=== PATIENT | female | born 1985 | race Caucasian/White ===

== ENCOUNTER 2017-01-11 06:02 | Emergency (ER) | payer OTHER ==
[~2017-01-11] VITALS: Ht 167.6 cm; Wt 68.0 kg
[~2017-01-11 06:02] MED LIST: 'XANAX1 MG PO; ADDERALL XR30 MG PO; AMOXIL500 MG PO; ANAPROX DS550 MG PO; AUGMENTIN 875 M1 TAB PO; CEPHALEXIN500 M1 PO; CLARITIN10 MG PO; COMBIVENT1 ARO IH; FLAGYL500 MG PO; FLEXERIL10 MG PO; HYDROCODONE BIT1 T11 PO; IBU-8800 MG PO; MEDROL DOSEPAK4 MG PO; MIDRIN (DURADR1 CAP PO; MOTRIN600 MG PO; MOTRIN800 MG PO; NORFLEX100 MG PO; ROBAXIN750 MG PO; TRAMADOL HCL50 MG PO; VIBRAMYCIN100 MG PO; VICODIN 5/500 505 MG PO; ZOFRAN4 MG PO
[2017-01-11 06:30] LABS: BILIRUBIN NEGATIVE (NEGATIVE); BLOOD NEGATIVE (NEGATIVE); CLARITY SL CLOUDY (CLEAR); COLOR YELLOW (YELLOW); GLUCOSE NEGATIVE (NEGATIVE); KETONE NEGATIVE (NEGATIVE); LEUKO ESTERASE NEGATIVE (NEGATIVE); NITRITE NEGATIVE (NEGATIVE); PH 6.5 (5.0-9.0); PROTEIN TRACE (NEGATIVE)
[2017-01-11 06:45] LABS: BACTERIA 1+; MUCOUS 2+; URINE REFLEX COMMENT NO (NO); WBC 0-2 wbc/hpf (0-5)
[2017-01-11 06:48] LABS: URINE AMPHETAMINES < 1000 (1000ng/ml); URINE BARBITURATES < 200 (200ng/ml); URINE COCAINE < 300 (300ng/ml)
[2017-01-11 06:50] LABS: BASO # 0.1 10*3/uL (0.0-0.1); BASO % 0.6 % (0.0-1.0); EOS # 0.2 10*3/uL (0.0-0.4); EOS % 1.1 % (1.0-4.0); HEMATOCRIT 46.2 % (37.0-47.0); HEMOGLOBIN 16.2 g/dl (12.0-16.0); LYMPH # 3.5 10*3/uL (1.3-4.4); LYMPH % 24.7 % (27.0-41.0); MEAN CELL VOLUME 96.7 fl (81.0-99.0); MEAN CORPUSCULAR HGB 33.9 pg (27.0-31.0); MEAN CORPUSCULAR HGB CONC 35.1 g/dl (33.0-37.0); MEAN PLATELET VOLUME 10.4 fl (9.6-12.3); MONO # 0.7 10*3/uL (0.1-1.0); MONO % 4.6 % (3.0-9.0); NEUT # 9.6 10*3/uL (2.3-7.9); NEUT % 68.7 % (47.0-73.0); PLATELET COUNT AUTOMATED 312 10*3/uL (130-400); RED BLOOD COUNT 4.78 10*6/uL (4.10-5.10); RED CELL DISTRI WIDTH 11.9 % (0-14.5)
[2017-01-11 07:04] LABS: BUN 8 mg/dl (7-24); CARBON DIOXIDE 27 mmol/L (21-32); CHLORIDE 110 mmol/L (98-107); EST GLOM FILT AFRICAN AMERICAN > 60 ml/min; GLUCOSE 110 mg/dL (65-99); MAGNESIUM 2.1 mg/dL (1.5-2.1); POTASSIUM 4.1 mmol/L (3.5-5.1); SODIUM 143 mmol/L (136-145)
[2017-01-11 07:05] LABS: C-REACTIVE PROTEIN 0.37 MG/DL (0-0.3)
[2017-01-11] MEDS ORDERED: Motrin,Rufen800 MG PO (08:09)
[2017-01-11] MEDS ORDERED: ZOFRAN ODT4 MG SL (08:09)
== END 2017-01-11 08:43 | disposition home or self-care (01) ==
LOC: ED 06:02
PROVIDERS: Emergency Medicine Emergency Medical Services
DX: G43.909 Migraine, unspecified, not intractable, without status migrainosus (principal)

== ENCOUNTER 2017-02-22 22:28 | Emergency (ER) | payer OTHER ==
[~2017-02-22] VITALS: Ht 167.6 cm; Wt 68.0 kg
[~2017-02-22 22:28] MED LIST changes: +Motrin,Rufen800 MG PO; +ZOFRAN ODT4 MG SL
[2017-02-22] MEDS ORDERED: ADDERALL XR 3030 MG PO (22:35)
[2017-02-23] MEDS ORDERED: CYCLOBENZAPRINE5 M3 PO (00:36)
[2017-02-23] MEDS ORDERED: Motrin,Rufen800 MG PO (00:36)
[2017-02-23] MEDS ORDERED: ULTRAM50 MG PO (00:36)
== END 2017-02-23 00:58 | disposition home or self-care (01) ==
LOC: ED 22:28
DX: M54.16 Radiculopathy, lumbar region (principal); Z79.899 Other long term (current) drug therapy

== ENCOUNTER → 2017-10-25 | Outpatient (CLI) | payer OTHER ==
[~2017-10-25] MED LIST changes: +ADDERALL XR 3030 MG PO; +CYCLOBENZAPRINE5 M3 PO; +FLONASE ALLERG9.9 ML NAS; +NEURONTIN300 MG PO; +ULTRAM50 MG PO
[2017-10-25 09:11] LABS: BASO % 0.3 % (0.0-1.0); EOS # 0.1 10*3/uL (0.0-0.4); EOS % 0.8 % (1.0-4.0); HEMATOCRIT 40.5 % (37.0-47.0); LYMPH # 2.8 10*3/uL (1.3-4.4); LYMPH % 22.5 % (27.0-41.0); MEAN CORPUSCULAR HGB 34.6 pg (27.0-31.0); MEAN CORPUSCULAR HGB CONC 34.6 g/dl (33.0-37.0); MEAN PLATELET VOLUME 10.5 fl (9.6-12.3); MONO # 0.8 10*3/uL (0.1-1.0); MONO % 6.6 % (3.0-9.0); NEUT # 8.6 10*3/uL (2.3-7.9); NEUT % 69.4 % (47.0-73.0); PLATELET COUNT AUTOMATED 226 10*3/uL (130-400); RED BLOOD COUNT 4.05 10*6/uL (4.10-5.10); RED CELL DISTRI WIDTH 12.3 % (0-14.5); WHITE BLOOD COUNT 12.4 10*3/uL (4.8-10.8)
[2017-10-25 09:45] LABS: ALBUMIN 3.8 gm/dl (3.1-4.5); ALKALINE PHOSPHATASE 68 U/L (45-117); BUN 11 mg/dl (7-24); CHLORIDE 105 mmol/L (98-107); POTASSIUM 3.8 mmol/L (3.5-5.1); SGOT/AST 16 IU/L (3-35); SGPT/ALT 25 U/L (12-78); SODIUM 139 mmol/L (136-145); TOTAL PROTEIN 7.4 gm/dL (6.4-8.2)
[2017-10-25 11:04] LABS: VITAMIN D, 25-HYDROXY 10.3 ng/mL (30-100)
== END | disposition home or self-care (01) ==
LOC: LAB 08:53
PROVIDERS: Physician Assistant
DX: Z51.81 Encounter for therapeutic drug level monitoring (principal); Z79.899 Other long term (current) drug therapy

== ENCOUNTER 2017-11-11 09:19 | Emergency (ER) | payer OTHER ==
[~2017-11-11] VITALS: Ht 167.6 cm; Wt 77.1 kg
[~2017-11-11 09:19] MED LIST changes: -FLONASE ALLERG9.9 ML NAS; -NEURONTIN300 MG PO
[2017-11-11] MEDS ORDERED: NEURONTIN300 MG PO (09:28)
[2017-11-11 09:31] LABS: BASO # 0.1 10*3/uL (0.0-0.1); BASO % 0.5 % (0.0-1.0); EOS # 0.1 10*3/uL (0.0-0.4); EOS % 1.5 % (1.0-4.0); HEMATOCRIT 45.6 % (37.0-47.0); HEMOGLOBIN 15.9 g/dl (12.0-16.0); LYMPH # 2.4 10*3/uL (1.3-4.4); LYMPH % 25.8 % (27.0-41.0); MEAN CELL VOLUME 98.3 fl (81.0-99.0); MEAN CORPUSCULAR HGB 34.3 pg (27.0-31.0); MEAN CORPUSCULAR HGB CONC 34.9 g/dl (33.0-37.0); MEAN PLATELET VOLUME 10.5 fl (9.6-12.3); MONO # 0.5 10*3/uL (0.1-1.0); MONO % 5.4 % (3.0-9.0); NEUT # 6.3 10*3/uL (2.3-7.9); NEUT % 66.5 % (47.0-73.0); PLATELET COUNT AUTOMATED 241 10*3/uL (130-400); RED BLOOD COUNT 4.64 10*6/uL (4.10-5.10); WHITE BLOOD COUNT 9.4 10*3/uL (4.8-10.8)
[2017-11-11] MEDS ORDERED: FLONASE ALLERG9.9 ML NAS (09:43)
[2017-11-11] MEDS ORDERED: CLARITIN10 MG PO (09:43)
[2017-11-11 09:49] LABS: ALBUMIN 4.2 gm/dl (3.1-4.5); ALKALINE PHOSPHATASE 59 U/L (45-117); BUN 10 mg/dl (7-24); CHLORIDE 106 mmol/L (98-107); POTASSIUM 3.6 mmol/L (3.5-5.1); SGOT/AST 19 IU/L (3-35); SGPT/ALT 24 U/L (12-78); SODIUM 138 mmol/L (136-145)
[2017-11-11 09:51] LABS: TROPONIN I < 0.015 ng/ml (<0.045)
== END 2017-11-11 11:07 | disposition home or self-care (01) ==
LOC: ED 09:19
PROVIDERS: Nurse Practitioner Family
DX: R42 Dizziness and giddiness (principal); R19.7 Diarrhea, unspecified; Z79.899 Other long term (current) drug therapy

== ENCOUNTER 2018-05-06 15:06 | Emergency (ER) | payer OTHER ==
[~2018-05-06] VITALS: Wt 59.0 kg
[~2018-05-06 15:06] MED LIST changes: +FLONASE ALLERG9.9 ML NAS; +NEURONTIN300 MG PO
[2018-05-06] MEDS ORDERED: TRAMADOL HCL50 MG PO (17:40)
[2018-05-06] MEDS ORDERED: MEDROL DOSEPAK4 MG PO (17:40)
[2018-05-06] MEDS ORDERED: CYCLOBENZAPRINE10 MG PO (17:40)
== END 2018-05-06 17:46 | disposition home or self-care (01) ==
LOC: ED 15:06
DX: M54.5 Low back pain (principal); M62.838 Other muscle spasm; G43.909 Migraine, unspecified, not intractable, without status migrainosus; F17.200 Nicotine dependence, unspecified, uncomplicated; Z88.1 Allergy status to other antibiotic agents; Z79.899 Other long term (current) drug therapy

== ENCOUNTER → 2018-07-17 | Outpatient (CLI) | payer OTHER ==
[~2018-07-17] MED LIST changes: +CYCLOBENZAPRINE10 MG PO
--- NOTE | ~2018-07-17 | EKG ---
[place], [place] ELECTROCARDIOGRAM REPORT NAME: MEI GAINES UNIT #: [id number] ROOM: DOCTOR: DENNYS DRAFT REPORT BIRTHDATE: [birth year] [facility] Test Date: 2018-07-17 Test Time: 11:49:03 Pat Name: MEI GAINES Department: Room: Gender: F Tapeman: : 1985 Requested By: JEFFREY NELSON Order Number: [id number] Reading MD: Ko Garcia MD Measurements Intervals [place] Rate: 100 P: 83 FL: 156 QRS: 84 QRSD: 77 T: 54 QT: 342 QTc: 442 Interpretive Statements Sinus tachycardia Borderline T abnormalities, anterior leads No previous ECG available for comparison Electronically Signed On 07-18-2018 4:06:53 PST by Ko Garcia MD CM:EKGRPT:ELECTROCARDIOGRAM REPORT [id number] JEFFREY NOYOLA DRAFT REPORT JEFFREY NELSON
== END | disposition home or self-care (01) ==
LOC: LAB 11:26 → CARD 11:26
DX: R00.0 Tachycardia, unspecified (principal); F15.10 Other stimulant abuse, uncomplicated

== ENCOUNTER 2018-08-11 18:08 | Inpatient (IN) | payer OTHER ==
[~2018-08-11] VITALS: Ht 167.6 cm; Wt 77.6 kg
--- NOTE | ~2018-08-11 | EKG ---
[place], [place] ELECTROCARDIOGRAM REPORT NAME: MEI GAINES UNIT #: [id number] ROOM: 531 DOCTOR: DENNYS DRAFT REPORT BIRTHDATE: [birth year] [facility] Test Date: 2018-08-11 Test Time: 18:28:03 Pat Name: MEI GAINES Department: 5E Room: 531 Gender: F Cosmetic Sales Assistant: Teetee Mosley : 1985 Requested By: FLORES BYRD Order Number: [id number] Reading MD: Ko Garcia MD Measurements Intervals [place] Rate: 94 P: 50 MN: 163 QRS: 57 QRSD: 73 T: 29 QT: 339 QTc: 424 Interpretive Statements Sinus rhythm Compared to ECG 07/17/2018 11:49:03 Sinus tachycardia no longer present T-wave abnormality no longer present Electronically Signed On 08-14-2018 12:31:34 PST by Ko Garcia MD CM:EKGRPT:ELECTROCARDIOGRAM REPORT [id number] FLORES BYRD EPIPHANY DRAFT REPORT FLORES BYRD
--- NOTE | ~2018-08-11 | CON ---
[place], [place] REPORT OF CONSULTATION NAME: MEI GAINES [facility] #: [id number] UNIT #: [id number] ROOM: 531 DOCTOR: JOEY GERBER MD BIRTHDATE: [birth year] DOS: 08/12/2018 REASON FOR CONSULTATION: Chest pain. CLINICAL HISTORY: The patient, 32-year-old patient, with no prior cardiovascular history, who presented to the Emergency Room for chest pain, shortness of breath. She is complaining of intermittent left-sided chest pain. She describes it as a tightness and a cramping pain, which radiates down her left arm and left leg, which has been going on for the past year. She has some shortness of breath with exertion. Her chest pain is intermittent, more at rest, no associated symptoms and pain, did relieve on its own. She denies any PND or orthopnea. She is fairly active at home. She has multiple other noncardiac symptoms including neck pain, back pain and intermittent fatigue and lack of energy, insomnia, nausea. She is really concerned about heart disease due to her family history of heart disease in her grandmother, grandfather, uncles, but none of her parents or other siblings have any heart disease. So, she was admitted to hospital and Cardiology consulted for further recommendations. At the time of examination, the patient is comfortable, sitting in the bed ____ family members. Denies any chest pain, shortness of breath. No palpitation, no dizziness, no orthopnea. REVIEW OF SYSTEMS: Review of the 10 system negative except as mentioned above. The patient did have some anxiety and she did follow with the psychiatrist. PAST MEDICAL HISTORY: 1. Anxiety. 2. Chronic neck pain. 3. Chronic lumbar radiculopathy. PAST SURGICAL HISTORY: Migraine headaches. SOCIAL HISTORY: The patient does smoke about half a pack a day, but does not drink alcohol, does not use illicit drugs. FAMILY HISTORY: Father and mother, no known cardiac history in the father and mother. ALLERGIES: The patient is allergic to BACTRIM. HOME MEDICATIONS: Reviewed. PAST SURGICAL HISTORY: No significant surgical history. PHYSICAL EXAMINATION: VITAL SIGNS: Blood pressure 112/60, pulse 61, respiratory rate was 16, weight 77.6 kilos, BMI 27.6. GENERAL: Alert, comfortable, in no acute distress. HEAD AND NECK: Supple, no distended neck veins, no carotid bruit. CHEST: Symmetrical, nontender. LUNGS: Clear to auscultation bilaterally. [place], [place] REPORT OF CONSULTATION NAME: MEI GAINES [facility] #: [id number] UNIT #: [id number] ROOM: 531 DOCTOR: JOEY GREBER MD BIRTHDATE: [birth year] HEART: Regular rhythm, no S3. ABDOMEN: Nontender. Bowel sounds normal. EXTREMITIES: Showed no edema. Distal pulses palpable. SKIN: Warm and dry. No cyanosis, no clubbing. RECTAL: Deferred. GENITOURINARY: Deferred. NEUROLOGIC: The patient is alert, oriented. No focal neurologic deficit. REVIEW OF THE DIAGNOSTIC TESTS: Her labs and imaging studies reviewed. EKG, normal sinus rhythm, nonspecific ST changes. CBC, chemistry unremarkable. Cardiac troponins are negative. IMPRESSION: 1. Chest pain, atypical, myocardial infarction ruled out. 2. Tobacco smoking. 3. Chronic back and neck pain. 4. Anxiety disorder. 5. Attention deficit hyperactivity disorder. RECOMMENDATIONS: Long discussion with the patient and her family members at bedside. Due to her family history and symptoms, I would recommend a treadmill stress test, which can be done as outpatient. The patient counseled for risk factor modification, for diet, exercise, weight loss as well as to quit smoking. Noncardiac issue, she will follow with her family doctor and her psychiatrist. All questions answered regarding her chest pain. The case was discussed with Dr. Carrasco, who is her admitting physician and her treatment plan was discussed. JOEY GERBER MD CM:CONSTR:REPORT OF CONSULTATION 1804 08/13/18 1622 interface
--- NOTE | ~2018-08-11 | EKG ---
[place], [place] ELECTROCARDIOGRAM REPORT NAME: MEI GAINES UNIT #: [id number] ROOM: 531 DOCTOR: DENNYS DRAFT REPORT BIRTHDATE: [birth year] [facility] Test Date: 2018-08-11 Test Time: 21:29:44 Pat Name: MEI GAINES Department: 5E Room: 531 1 Gender: F Evaluation Analyst: Teetee Mosley : 1985 Requested By: ALIDA SR Order Number: [id number] Reading MD: Ko Garcia MD Measurements Intervals [place] Rate: 68 P: 32 [place]: 177 QRS: 48 QRSD: 78 T: 25 QT: 382 QTc: 407 Interpretive Statements Sinus rhythm Borderline T abnormalities, anterior leads Compared to ECG 07/17/2018 11:49:03 Sinus tachycardia no longer present T-wave abnormality still present Electronically Signed On 08-14-2018 12:32:25 PST by Ko Garcia MD CM:EKGRPT:ELECTROCARDIOGRAM REPORT [id number] 1232 ALIDA ENGLISH DRAFT REPORT ALIDA SR DO
--- NOTE | ~2018-08-11 | EKG ---
[place], [place] ELECTROCARDIOGRAM REPORT NAME: MEI GAINES UNIT #: [id number] ROOM: 531 DOCTOR: DENNYS DRAFT REPORT BIRTHDATE: [birth year] [facility] Test Date: 2018-08-12 Test Time: 00:09:18 Pat Name: MEI GAINES Department: Room: 531 1 Gender: F Manager Style: Isidro Cao : 1985 Requested By: ALIDA SR Order Number: [id number] Reading MD: Ko Garcia MD Measurements Intervals [place] Rate: 73 P: 47 [place]: 160 QRS: 58 QRSD: 74 T: 30 QT: 397 QTc: 438 Interpretive Statements Sinus rhythm Borderline T abnormalities, anterior leads Compared to ECG 07/17/2018 11:49:03 Sinus tachycardia no longer present T-wave abnormality still present Electronically Signed On 08-14-2018 12:32:53 PST by Ko Garcia MD CM:EKGRPT:ELECTROCARDIOGRAM REPORT [id number] 1232 ALIDA ENGLISH DRAFT REPORT ALIDA SR DO
[2018-08-11 18:11] VITALS: BP 104/66
[2018-08-11 18:32] LABS: BASO # 0.1 10*3/uL (0.0-0.1); BASO % 0.7 % (0.0-1.0); EOS # 0.2 10*3/uL (0.0-0.4); EOS % 2.1 % (1.0-4.0); HEMATOCRIT 39.7 % (37.0-47.0); HEMOGLOBIN 13.8 g/dl (12.0-16.0); LYMPH # 3.5 10*3/uL (1.3-4.4); LYMPH % 32.6 % (27.0-41.0); MEAN CELL VOLUME 99.7 fl (81.0-99.0); MEAN CORPUSCULAR HGB 34.7 pg (27.0-31.0); MEAN CORPUSCULAR HGB CONC 34.8 g/dl (33.0-37.0); MEAN PLATELET VOLUME 10.1 fl (9.6-12.3); MONO # 0.6 10*3/uL (0.1-1.0); MONO % 5.7 % (3.0-9.0); NEUT # 6.2 10*3/uL (2.3-7.9); NEUT % 58.4 % (47.0-73.0); PLATELET COUNT AUTOMATED 251 10*3/uL (130-400); RED BLOOD COUNT 3.98 10*6/uL (4.10-5.10); RED CELL DISTRI WIDTH 12.5 % (0-14.5); WHITE BLOOD COUNT 10.6 10*3/uL (4.8-10.8)
[2018-08-11 18:42] LABS: ACT PARTIAL THROMBO TIME 23.4 SECONDS (20.8-31.5); INTERNATIONAL NORM RATIO 0.9 (2.0-3.5)
[2018-08-11 18:48] LABS: ALBUMIN 3.8 gm/dl (3.1-4.5); ALKALINE PHOSPHATASE 66 U/L (45-117); BUN 13 mg/dl (7-24); CHLORIDE 106 mmol/L (98-107); CREATININE 0.88 mg/dL (0.55-1.02); POTASSIUM 4.4 mmol/L (3.5-5.1); SGOT/AST 20 IU/L (3-35); SGPT/ALT 30 U/L (12-78); SODIUM 139 mmol/L (136-145); TOTAL PROTEIN 7.5 gm/dL (6.4-8.2)
[2018-08-11 18:49] LABS: TROPONIN I < 0.015 ng/ml (<0.045)
[2018-08-11 18:50] LABS: ACETAMINOPHEN (TYLENOL) < 5.0 ug/ml (10-30)
[2018-08-11 19:00] VITALS: BP 122/68
[2018-08-11 19:35] LABS: BILIRUBIN NEGATIVE (NEGATIVE); BLOOD NEGATIVE (NEGATIVE); CLARITY SL CLOUDY (CLEAR); COLOR YELLOW (YELLOW); GLUCOSE NEGATIVE (NEGATIVE); KETONE NEGATIVE (NEGATIVE); LEUKO ESTERASE TRACE (NEGATIVE); NITRITE NEGATIVE (NEGATIVE); PH 7.5 (5.0-9.0); UROBILINOGEN 0.2 E.U./dl (0.2-1.0)
[2018-08-11 19:43] LABS: URINE AMPHETAMINES < 1000 (1000ng/ml); URINE BARBITURATES < 200 (200ng/ml); URINE BENZODIAZEPINES > 200 (200ng/ml); URINE CANNABINOIDS (THC) > 50 (50ng/ml); URINE COCAINE < 300 (300ng/ml); URINE METHADONE < 300 (300ng/ml); URINE OPIATES < 300 (300ng/ml)
[2018-08-11 19:44] LABS: URINE PHENCYCLIDINE < 25 (25ng/ml)
[2018-08-11 20:01] VITALS: BP 113/71
[2018-08-11 20:15] VITALS: BP 116/72
[2018-08-11 20:17] LABS: BACTERIA 2+; EPITHELIAL CELLS 16-20
[2018-08-11] MEDS ORDERED: CYMBALTA60 MG PO (20:47)
[2018-08-12] VITALS: BP 102/47
[2018-08-12 03:23] LABS: BASO # 0.1 10*3/uL (0.0-0.1); BASO % 0.5 % (0.0-1.0); EOS # 0.3 10*3/uL (0.0-0.4); HEMATOCRIT 39.2 % (37.0-47.0); HEMOGLOBIN 13.5 g/dl (12.0-16.0); LYMPH # 3.2 10*3/uL (1.3-4.4); LYMPH % 33.4 % (27.0-41.0); MEAN CELL VOLUME 99.5 fl (81.0-99.0); MEAN CORPUSCULAR HGB 34.3 pg (27.0-31.0); MEAN CORPUSCULAR HGB CONC 34.4 g/dl (33.0-37.0); MEAN PLATELET VOLUME 10.1 fl (9.6-12.3); MONO # 0.7 10*3/uL (0.1-1.0); NEUT # 5.2 10*3/uL (2.3-7.9); NEUT % 55.5 % (47.0-73.0); PLATELET COUNT AUTOMATED 249 10*3/uL (130-400); RED BLOOD COUNT 3.94 10*6/uL (4.10-5.10); RED CELL DISTRI WIDTH 12.5 % (0-14.5); WHITE BLOOD COUNT 9.4 10*3/uL (4.8-10.8)
[2018-08-12 03:36] LABS: BUN 13 mg/dl (7-24); CHLORIDE 107 mmol/L (98-107); CREATININE 0.81 mg/dL (0.55-1.02); POTASSIUM 3.9 mmol/L (3.5-5.1); SODIUM 141 mmol/L (136-145)
[2018-08-12 03:40] LABS: CHOLESTEROL 254 mg/dL (<200); FREE T4 0.94 ng/dl (0.76-1.46); HDL CHOLESTEROL 40 mg/dl (40-60); LDL CHOLESTEROL 160 mg/dL (9-159); TRIGLYCERIDES 271 mg/dl (<150); VLDL CHOLESTEROL 54 mg/dL (6-40)
[2018-08-12 07:46] VITALS: BP 112/60
[2018-08-12] MEDS ORDERED: VITAMIN D50000 UNIT PO (08:28)
[2018-08-12 12:00] VITALS: BP 108/50
[2018-08-12] MEDS ORDERED: ATORVASTATIN CA40 M1 PO (12:20)
== END 2018-08-12 12:45 | disposition home or self-care (01) | DRG 880 ==
LOC: ED 18:08 → EDHOLD 18:38 → 5E 19:47
PROVIDERS: Internal Medicine; Nurse Practitioner Family
DX: F41.9 Anxiety disorder, unspecified (principal); M62.838 Other muscle spasm; M54.16 Radiculopathy, lumbar region; M54.2 Cervicalgia; F17.210 Nicotine dependence, cigarettes, uncomplicated; F90.9 Attention-deficit hyperactivity disorder, unspecified type; E83.41 Hypermagnesemia; E66.3 Overweight; F41.1 Generalized anxiety disorder; Z88.2 Allergy status to sulfonamides; Z88.8 Allergy status to other drugs, medicaments and biological substances; Z88.1 Allergy status to other antibiotic agents; Z79.899 Other long term (current) drug therapy; Z71.6 Tobacco abuse counseling; Z68.27 Body mass index [BMI] 27.0-27.9, adult

== ENCOUNTER 2019-09-02 21:18 | Emergency (ER) | payer SELFPAY ==
[~2019-09-02] VITALS: Ht 167.6 cm; Wt 68.9 kg
[~2019-09-02 21:18] MED LIST changes: +ATORVASTATIN CA40 M1 PO; +CYMBALTA60 MG PO; +VITAMIN D50000 UNIT PO
[2019-09-02 23:25] LABS: BASO % 0.3 % (0.0-1.0); EOS # 0.2 10*3/uL (0.0-0.4); EOS % 1.7 % (1.0-4.0); HEMATOCRIT 39.9 % (37.0-47.0); HEMOGLOBIN 13.3 g/dl (12.0-16.0); LYMPH # 2.4 10*3/uL (1.3-4.4); LYMPH % 26.9 % (27.0-41.0); MEAN CELL VOLUME 98.5 fl (81.0-99.0); MEAN CORPUSCULAR HGB 32.8 pg (27.0-31.0); MEAN CORPUSCULAR HGB CONC 33.3 g/dl (33.0-37.0); MEAN PLATELET VOLUME 10.6 fl (9.6-12.3); MONO # 0.7 10*3/uL (0.1-1.0); MONO % 7.6 % (3.0-9.0); NEUT # 5.7 10*3/uL (2.3-7.9); NEUT % 62.8 % (47.0-73.0); PLATELET COUNT AUTOMATED 192 10*3/uL (130-400); RED BLOOD COUNT 4.05 10*6/uL (4.10-5.10); RED CELL DISTRI WIDTH 11.9 % (0-14.5); WHITE BLOOD COUNT 9.1 10*3/uL (4.8-10.8)
[2019-09-02 23:40] LABS: ALBUMIN 3.3 gm/dl (3.1-4.5); ALKALINE PHOSPHATASE 66 U/L (45-117); BUN 9 mg/dl (7-24); CHLORIDE 106 mmol/L (98-107); CREATININE 0.89 mg/dL (0.55-1.02); POTASSIUM 3.6 mmol/L (3.5-5.1); SGOT/AST 5 IU/L (3-35); SGPT/ALT 22 U/L (12-78); SODIUM 139 mmol/L (136-145); TOTAL PROTEIN 7.4 gm/dL (6.4-8.2)
[2019-09-02] MEDS ORDERED: LEVAQUIN750 M1 PO (23:50)
== END 2019-09-03 00:21 | disposition home or self-care (01) ==
LOC: ED 21:18
PROVIDERS: Emergency Medicine
DX: J18.9 Pneumonia, unspecified organism (principal); H92.03 Otalgia, bilateral; G43.909 Migraine, unspecified, not intractable, without status migrainosus; M19.90 Unspecified osteoarthritis, unspecified site; F17.200 Nicotine dependence, unspecified, uncomplicated; Z79.899 Other long term (current) drug therapy; Z88.2 Allergy status to sulfonamides

== ENCOUNTER 2020-05-24 05:57 | Emergency (ER) | payer OTHER ==
[~2020-05-24] VITALS: Ht 167.6 cm; Wt 54.4 kg
[~2020-05-24 05:57] MED LIST changes: +LEVAQUIN750 M1 PO
[2020-05-24 07:05] LABS: BASO # 0.1 10*3/uL (0.0-0.1); BASO % 0.6 % (0.0-1.0); EOS % 0.5 % (1.0-4.0); HEMATOCRIT 38.8 % (37.0-47.0); LYMPH # 1.9 10*3/uL (1.3-4.4); LYMPH % 21.6 % (27.0-41.0); MEAN CELL VOLUME 96.3 fl (81.0-99.0); MEAN CORPUSCULAR HGB 32.5 pg (27.0-31.0); MEAN CORPUSCULAR HGB CONC 33.8 g/dl (33.0-37.0); MEAN PLATELET VOLUME 10.3 fl (9.6-12.3); MONO # 0.5 10*3/uL (0.1-1.0); MONO % 5.7 % (3.0-9.0); NEUT # 6.2 10*3/uL (2.3-7.9); NEUT % 71.1 % (47.0-73.0); PLATELET COUNT AUTOMATED 236 10*3/uL (130-400); RED BLOOD COUNT 4.03 10*6/uL (4.10-5.10); RED CELL DISTRI WIDTH 11.8 % (0-14.5); WHITE BLOOD COUNT 8.8 10*3/uL (4.8-10.8)
[2020-05-24 07:21] LABS: ALBUMIN 4.1 gm/dl (3.1-4.5); ALKALINE PHOSPHATASE 61 U/L (45-117); BUN 10 mg/dl (7-24); CHLORIDE 106 mmol/L (98-107); CREATININE 0.87 mg/dL (0.55-1.02); POTASSIUM 3.9 mmol/L (3.5-5.1); SGOT/AST 20 IU/L (3-35); SGPT/ALT 32 U/L (12-78); SODIUM 138 mmol/L (136-145); TOTAL PROTEIN 7.4 gm/dL (6.4-8.2)
[2020-05-24 07:26] LABS: TROPONIN I < 0.015 ng/ml (<0.045)
[2020-05-24 08:31] LABS: BILIRUBIN Negative; BLOOD Negative (NEGATIVE); CLARITY Clear (CLEAR); COLOR Yellow (YELLOW); GLUCOSE Negative; KETONE Negative; LEUKO ESTERASE Negative (NEGATIVE); NITRITE Negative (NEGATIVE); UROBILINOGEN 0.2 E.U./dl (0.0-1.0)
[2020-05-24 08:41] LABS: BACTERIA 1+; EPITHELIAL CELLS 0-2; WBC 0-2 wbc/hpf (0-5)
[2020-05-24 09:46] LABS: URINE AMPHETAMINES > 1000 (1000ng/ml); URINE BARBITURATES < 200 (200ng/ml); URINE BENZODIAZEPINES < 200 (200ng/ml); URINE CANNABINOIDS (THC) > 50 (50ng/ml); URINE COCAINE < 300 (300ng/ml); URINE METHADONE < 300 (300ng/ml); URINE OPIATES < 300 (300ng/ml)
[2020-05-24 09:47] LABS: URINE PHENCYCLIDINE < 25 (25ng/ml)
== END 2020-05-24 09:32 | disposition home or self-care (01) ==
LOC: ED 05:57
PROVIDERS: Emergency Medicine Emergency Medical Services
DX: G43.809 Other migraine, not intractable, without status migrainosus (principal); E78.00 Pure hypercholesterolemia, unspecified; Z88.8 Allergy status to other drugs, medicaments and biological substances; Z79.899 Other long term (current) drug therapy

== ENCOUNTER 2020-05-30 17:25 | Emergency (ER) | payer OTHER ==
[~2020-05-30] VITALS: Wt 54.4 kg
[2020-05-30] MEDS ORDERED: PROAIR HFA8.5 GM INH (17:42)
[2020-05-30] MEDS ORDERED: ZITHROMAX250 MG PO (17:42)
[2020-05-30] MEDS ORDERED: ALLEGRA-D 24 H1 EACH PO (17:42)
== END 2020-05-30 17:40 | disposition home or self-care (01) ==
LOC: ED 17:25
DX: H66.92 Otitis media, unspecified, left ear (principal); J32.9 Chronic sinusitis, unspecified; G43.909 Migraine, unspecified, not intractable, without status migrainosus; M19.90 Unspecified osteoarthritis, unspecified site; E78.00 Pure hypercholesterolemia, unspecified; Z88.2 Allergy status to sulfonamides; Z79.899 Other long term (current) drug therapy

== ENCOUNTER 2020-06-20 10:12 | Emergency (ER) | payer OTHER ==
[~2020-06-20] VITALS: Ht 167.6 cm; Wt 63.5 kg
== END 2020-06-20 13:02 | disposition home or self-care (01) ==
LOC: ED 10:12
DX: T14.8XXA Other injury of unspecified body region, initial encounter (principal); G43.909 Migraine, unspecified, not intractable, without status migrainosus; Z88.8 Allergy status to other drugs, medicaments and biological substances; Z79.899 Other long term (current) drug therapy; X58.XXXA Exposure to other specified factors, initial encounter; Y93.89 Activity, other specified; Y92.89 Other specified places as the place of occurrence of the external cause; Y99.8 Other external cause status

== ENCOUNTER 2021-11-05 21:05 | Emergency (ER) | payer OTHER ==
[~2021-11-05] VITALS: Ht 167.6 cm; Wt 72.6 kg
[~2021-11-05 21:05] MED LIST changes: +ALLEGRA-D 24 H1 EACH PO; +NAPROSYN500 MG PO; +PROAIR HFA8.5 GM INH; +ZITHROMAX250 MG PO
[2021-11-05] MEDS ORDERED: CLINDAMYCIN HC300 MG PO (21:32)
== END 2021-11-05 21:29 | disposition home or self-care (01) ==
LOC: ED 21:05
DX: L02.415 Cutaneous abscess of right lower limb (principal); Z98.890 Other specified postprocedural states; Z79.899 Other long term (current) drug therapy; Z88.1 Allergy status to other antibiotic agents

== ENCOUNTER 2021-12-13 12:45 | Emergency (ER) | payer OTHER ==
[~2021-12-13] VITALS: Ht 167.6 cm; Wt 68.0 kg
[~2021-12-13 12:45] MED LIST changes: +CLINDAMYCIN HC300 MG PO
[2021-12-13 13:26] LABS: BASO # 0.1 10*3/uL (0.0-0.1); BASO % 0.6 % (0.0-1.0); EOS # 0.1 10*3/uL (0.0-0.4); EOS % 0.6 % (1.0-4.0); HEMATOCRIT 36.7 % (37.0-47.0); LYMPH # 2.3 10*3/uL (1.3-4.4); LYMPH % 23.6 % (27.0-41.0); MEAN CELL VOLUME 94.8 fl (81.0-99.0); MEAN CORPUSCULAR HGB 32.3 pg (27.0-31.0); MEAN CORPUSCULAR HGB CONC 34.1 g/dl (33.0-37.0); MEAN PLATELET VOLUME 10.1 fl (9.6-12.3); MONO # 0.7 10*3/uL (0.1-1.0); MONO % 7.1 % (3.0-9.0); NEUT # 6.6 10*3/uL (2.3-7.9); NEUT % 67.9 % (47.0-73.0); PLATELET COUNT AUTOMATED 335 10*3/uL (130-400); RED BLOOD COUNT 3.87 10*6/uL (4.10-5.10); RED CELL DISTRI WIDTH 12.6 % (0-14.5); WHITE BLOOD COUNT 9.8 10*3/uL (4.8-10.8)
[2021-12-13 13:55] LABS: ALKALINE PHOSPHATASE 69 U/L (45-117); BUN 17 mg/dl (7-24); CHLORIDE 108 mmol/L (98-107); CREATININE 1.03 mg/dL (0.55-1.02); LIPASE 44 U/L (73-393); POTASSIUM 3.1 mmol/L (3.5-5.1); SGOT/AST 46 IU/L (3-35); SGPT/ALT 51 U/L (12-78); SODIUM 140 mmol/L (136-145); TOTAL PROTEIN 7.5 gm/dL (6.4-8.2)
[2021-12-13 13:59] LABS: B-hCG (QUALITATIVE) NEGATIVE (NEGATIVE)
[2021-12-13 14:01] LABS: THYROID STIM HORMONE (HS) 0.2 uIU/ml (0.358-4.75)
== END 2021-12-13 15:37 | disposition home or self-care (01) ==
LOC: ED 12:45
PROVIDERS: Emergency Medicine
DX: F15.929 Other stimulant use, unspecified with intoxication, unspecified (principal); G43.909 Migraine, unspecified, not intractable, without status migrainosus; Z87.891 Personal history of nicotine dependence; Z98.890 Other specified postprocedural states; Z79.899 Other long term (current) drug therapy; Z88.1 Allergy status to other antibiotic agents

== ENCOUNTER 2022-02-01 23:50 | Emergency (ER) | payer OTHER ==
[~2022-02-01] VITALS: Ht 167.6 cm; Wt 65.8 kg
[2022-02-03] MEDS ORDERED: KETOROLAC10 MG PO (11:14)
== END 2022-02-02 04:00 | disposition home or self-care (01) ==
LOC: ED 23:50
DX: G43.909 Migraine, unspecified, not intractable, without status migrainosus (principal); Z88.1 Allergy status to other antibiotic agents; Z79.899 Other long term (current) drug therapy

== ENCOUNTER 2022-02-03 07:28 | Emergency (ER) | payer OTHER ==
[~2022-02-03] VITALS: Wt 68.0 kg
[2022-02-03] MEDS ORDERED: KETOROLAC10 MG PO (11:14)
== END 2022-02-03 11:20 | disposition home or self-care (01) ==
LOC: ED 07:28
DX: G43.909 Migraine, unspecified, not intractable, without status migrainosus (principal)

== ENCOUNTER 2022-02-12 16:21 | Emergency (ER) | payer OTHER ==
[~2022-02-12 16:21] MED LIST changes: +KETOROLAC10 MG PO
== END 2022-02-12 16:41 | disposition left against medical advice (07) ==
LOC: ED 16:21
DX: Z53.21 Procedure and treatment not carried out due to patient leaving prior to being seen by health care provider (principal)

== ENCOUNTER 2022-03-28 08:39 | Emergency (ER) | payer OTHER ==
[~2022-03-28] VITALS: Ht 167.6 cm; Wt 72.6 kg
[2022-03-28] MEDS ORDERED: BUSPAR15 MG PO (08:49)
[2022-03-28] MEDS ORDERED: TRAZODONE50 MG PO (08:49)
== END 2022-03-28 13:46 | disposition left against medical advice (07) ==
LOC: ED 08:39
DX: M54.50 Low back pain, unspecified (principal); Z53.21 Procedure and treatment not carried out due to patient leaving prior to being seen by health care provider

== ENCOUNTER → 2025-01-30 | Outpatient (CLI) | payer OTHER ==
[~2025-01-30] MED LIST changes: +BUSPAR15 MG PO; +TRAZODONE50 MG PO
[2025-01-30 10:51] LABS: BASO # 0.1 10*3/uL (0.0-0.1); BASO % 0.6 % (0.0-1.0); EOS # 0.1 10*3/uL (0.0-0.4); HEMATOCRIT 43.1 % (37.0-47.0); MEAN CELL VOLUME 95.8 fl (81.0-99.0); MEAN CORPUSCULAR HGB 32.9 pg (27.0-31.0); MEAN CORPUSCULAR HGB CONC 34.3 g/dl (33.0-37.0); MEAN PLATELET VOLUME 9.8 fl (9.6-12.3); MONO # 0.5 10*3/uL (0.1-1.0); MONO % 5.3 % (3.0-9.0); NEUT % 69.4 % (47.0-73.0); PLATELET COUNT AUTOMATED 251 10*3/uL (130-400); RED CELL DISTRI WIDTH 12.5 % (0-14.5); WHITE BLOOD COUNT 8.7 10*3/uL (4.8-10.8)
[2025-01-30 11:23] LABS: ALKALINE PHOSPHATASE 60 U/L (46-116); BUN 10 mg/dl (9-23); CHLORIDE 104 mmol/L (98-107); CHOLESTEROL 260 mg/dL (<200); LDL CHOLESTEROL 187 mg/dL (9-159); POTASSIUM 3.9 mmol/L (3.4-5.1); SGPT/ALT 19 U/L (5-49); TOTAL PROTEIN 6.9 gm/dL (6.0-8.0); TRIGLYCERIDES 108 mg/dl (<150)
== END | disposition home or self-care (01) ==
LOC: LAB 10:32
PROVIDERS: ATTEND Nurse Practitioner Family
DX: Z51.81 Encounter for therapeutic drug level monitoring (principal); F31.9 Bipolar disorder, unspecified